=== PATIENT | male | born 1945 | race Caucasian/White ===

== ENCOUNTER 2020-07-11 12:19 | Emergency (ER) | payer MEDICARE, OTHER ==
[~2020-07-11] VITALS: Ht 154.9 cm; Wt 73.0 kg
[2020-07-11 15:10] LABS: BASOPHILS % (AUTO) 0.6 % (0-1); EOSINOPHILS # (AUTO) 0.2 X10'3 (0-0.9); EOSINOPHILS % (AUTO) 2.9 % (0-6); HEMATOCRIT 49.9 % (42.0-52.0); LYMPHOCYTES # (AUTO) 1.1 X10'3 (1.1-4.8); LYMPHOCYTES % (AUTO) 16.4 % (21-51); MEAN CORPUSCULAR HEMOGLOBIN 34.7 PG (27.0-31.0); MEAN CORPUSCULAR HGB CONC 34.1 g/dL (33.0-36.5); MEAN CORPUSCULAR VOLUME 101.6 FL (78-98); MEAN PLATELET VOLUME 8.3 FL (7.4-10.4); MONOCYTES # (AUTO) 0.7 X10'3 (0-0.9); MONOCYTES % (AUTO) 10.2 % (2-12); NEUTROPHILS # (AUTO) 4.7 X10'3 (1.8-7.7); NEUTROPHILS % (AUTO) 69.9 % (42-75); PLATELET COUNT 196 X10'3 (140-440); RED BLOOD COUNT 4.91 X10'6 (4.70-6.10); RED CELL DISTRIBUTION WIDTH 13.4 % (11.5-14.5); WHITE BLOOD COUNT 6.7 X10'3 (4.5-11.0)
[2020-07-11 15:16] LABS: ALANINE AMINOTRANSFERASE 37 U/L (12-78); ALBUMIN 4.4 G/DL (3.4-5.0); ALBUMIN/GLOBULIN RATIO 1.4 (1.1-1.5); ALKALINE PHOSPHATASE 77 IU/L (46-116); ANION GAP 7 (8-16); ASPARTATE AMINO TRANSFERASE 28 U/L (10-37); BILIRUBIN,TOTAL 0.8 MG/DL (0.1-1.0); BLOOD UREA NITROGEN 16 MG/DL (7-18); BUN/CREATININE RATIO 14.4 (5.4-32.0); CHLORIDE 103 MMOL/L (99-107); CREATININE 1.11 MG/DL (0.60-1.10); GLUCOSE 94 MG/DL (70-104); POTASSIUM 4.6 MMOL/L (3.5-5.1); SODIUM 141 MMOL/L (135-145); TOTAL CARBON DIOXIDE 30.6 MMOL/L (24-32); TOTAL PROTEIN 7.6 G/DL (6.4-8.2); eGFR 65 ML/MIN
[2020-07-11] MEDS ORDERED: iohexol 350MG/ML 100ml bottle IV ONE (15:27)
[2020-07-11 16:41] VITALS: BP 169/116
== END 2020-07-11 16:47 | disposition home or self-care (01) ==
LOC: ER 12:20
DX: R06.02 Shortness of breath (principal); E78.00 Pure hypercholesterolemia, unspecified; I10 Essential (primary) hypertension
CPT/HCPCS: 36415; 71045; 80053; 85025; 93005; 99285; Q9967

== ENCOUNTER 2020-07-13 15:05 | Outpatient (CLI) | payer MEDICARE, OTHER | END 2020-07-13 23:59 | disposition home or self-care (01) | LOC: RAD 15:05 → EDUNIT# 15:30 → RAD 23:59 | PROVIDERS: ATTEND Thoracic Surgery (Cardiothoracic Vascular Surgery) | DX: K21.9 Gastro-esophageal reflux disease without esophagitis (principal); R13.14 Dysphagia, pharyngoesophageal phase | CPT/HCPCS: 74230 ==

== ENCOUNTER 2020-10-05 14:19 | Outpatient (CLI) | payer MEDICARE, OTHER | END 2020-10-05 23:59 | disposition home or self-care (01) | LOC: RT 14:19 | PROVIDERS: ATTEND Internal Medicine | DX: R06.02 Shortness of breath (principal) | CPT/HCPCS: 94010 ==